=== PATIENT | female | born 1995 | race Hispanic/Latino ===

== ENCOUNTER → 2018-02-23 | Day surgery (SDC) | payer OTHER ==
[~2018-02-23] MED LIST: ACETAMINOPHEN 1000 MG/100 ML 100 ML IV ONE; ALPRAZOLAM0.25 MG PO; BUPIVACAINE 0.25% 30ML SDV INJ ONE; CITALOPRAM HBR20 MG PO; DEXAMETHASONE SOD PHOS INJ 4 MG/ML VIAL ONE; FENTANYL CITRATE/PF 100MCG/2 ML INJ ONE; GLYCOPYRROLATE INJ 1MG/ 5 ML SYR ONE; LIDOCAINE HCL 2% LOCAL INJ 5 ML SDV VIAL INJ ONE; MIDAZOLAM HCL 2 MG/2 ML VIAL ONE; NEOSTIGMINE 5 MG/5ML SYR ONE; ONDANSETRON HCL INJ 2 MG/ML VIAL ONE; PROPOFOL IV EMULSION 10 MG/ML 20 ML VIAL ONE; ROCURONIUM BROMIDE 10 MG/ML 5ML VIAL ONE; SEVOFLURANE INHAL SOLN 250 ML PEN BTL ONE
--- NOTE | 2018-02-23 09:48 | Operative Report ---
DATE OF PROCEDURE: February 23, 2018 PREOPERATIVE DIAGNOSIS: Chronic adenotonsillitis and adenotonsillar hypertrophy. POSTOPERATIVE DIAGNOSIS: Chronic adenotonsillitis and adenotonsillar hypertrophy. PROCEDURE: Tonsillectomy and adenoidectomy. SIGNIFICANT FINDINGS: Tonsils are 3+/3+, scarred. Adenoids are mildly enlarged. ANESTHESIA: General endotracheal tube anesthesia. SPECIMENS REMOVED: Tonsils (adenoids were coblated). ESTIMATED BLOOD LOSS: Less than 1 mL. COMPLICATIONS: None. INDICATIONS: The patient is a 22-year-old female with 10-year history of frequent throat infections occurring 3 to 4 times per year, which has been worse over the past 6 months. Each episode manifests as sore throat, odynophagia, fever, malaise as well as enlarged, erythematous, exudative tonsils. She has been refractory to multiple courses of antibiotics including Keflex and Augmentin, which only help temporarily. On examination, her tonsils are 3+/3+ bilaterally and scarred from previous infection. She is scheduled for tonsillectomy and adenoidectomy for the treatment of chronic adenotonsillitis and adenotonsillar hypertrophy. The risks and complications of the procedures were thoroughly discussed with the patient, and they include infection; bleeding; scarring; failure to improve; need for additional operations; damage to the teeth, gums, tongue and lips; damage to the orthodontia; chronic pain; inability to taste; numbness of the tongue; leakage of fluid through the nose when drinking liquids; scarring of the pharynx resulting in permanent worse nasal obstruction; need for blood transfusions; damage to surrounding nerves, blood vessels and muscles. She fully understands and gives consent. PROCEDURE: The patient was taken to the operating room and placed supine on the operating table where general anesthesia was achieved through orotracheal intubation. Eyes were taped. Shoulder roll was placed. Head and body were draped. Table was turned 90 degrees with the head towards the surgeon. Braydon-Chaim mouth gag was inserted without difficulty and placed in suspension on a Rivas stand. There was no evidence of bifid uvula, diastasis of muscular uvulae or notched hard palate. Red rubber catheters were then inserted into the nose and brought out through the mouth to retract the soft palate. Examination of the nasopharynx with the laryngeal mirror revealed the adenoids to be mildly hypertrophied. Tonsils were enlarged at 3+/3+ bilaterally. The left tonsil was grasped with a tonsillar Allis clamp and was removed with the ArthroCare coblator on a setting of 6 on cut mode, taking care to stay right on the capsule of the tonsil. Right tonsil was removed in the same way. Hemostasis was obtained with the coblator on a setting of 3 on the coag mode. Following this, the adenoids were then removed with the ArthroCare coblator on a setting of 8 on cut mode, taking care to avoid trauma to the torus tubarius. Hemostasis was obtained with the coblator on a setting of 3 on coag mode. Following this, injection with 3 mL of 1/4 percent plain Marcaine was injected into the free edges of the anterior and posterior tonsillar pillars. Thorough irrigation was then performed. Stomach contents were suctioned with an NG tube. The red rubber catheters and Braydon-Chaim mouth gag were then removed without difficulty, revealing no trauma to the teeth, gums, tongue, lips or orthodontia. Patient was awakened in the operating room, extubated and taken to the recovery room in good condition. Job#: [id number] MIKAYLA VALENTINE
== END | disposition home or self-care (01) ==
LOC: OR 07:30
PROVIDERS: ATTEND Otolaryngology
DX: J35.03 Chronic tonsillitis and adenoiditis (principal); F41.9 Anxiety disorder, unspecified
CPT/HCPCS: 42821; 81025; 88304; J1100; J2001; J2250; J2405; J3490